=== PATIENT | female | born 1960 ===

== ENCOUNTER 2020-06-11 10:30 | Inpatient (IN) | payer OTHER ==
[~2020-06-11] VITALS: Ht 157.5 cm; Wt 72.1 kg
[2020-06-11] MEDS ORDERED: SYNTHROID75 MCG PO (11:38)
[2020-06-11] MEDS ORDERED: MAXFE PO (11:39)
== END 2020-06-15 11:26 | disposition home or self-care (01) | DRG 737 ==
LOC: OB/GYN 06-12 10:30 → SURG-SUITE 06-13 07:20 → O/R 06-13 07:20 → OB/GYN 06-13 10:30 → SURG-SUITE 06-13 14:53
PROVIDERS: ADMIT Specialist; ATTEND Specialist
PROC: 0UT20ZZ Resection of Bilateral Ovaries, Open Approach (ICD-10-PCS; 2020-06-13)
PROC: 0UT70ZZ Resection of Bilateral Fallopian Tubes, Open Approach (ICD-10-PCS; 2020-06-13)
PROC: 07BC0ZX Excision of Pelvis Lymphatic, Open Approach, Diagnostic (ICD-10-PCS; 2020-06-13)
PROC: 0WBF0ZX Excision of Abdominal Wall, Open Approach, Diagnostic (ICD-10-PCS; 2020-06-13)
PROC: 0WBH0ZX Excision of Retroperitoneum, Open Approach, Diagnostic (ICD-10-PCS; 2020-06-13)
PROC: 0UT90ZZ Resection of Uterus, Open Approach (ICD-10-PCS; principal; 2020-06-13 07:00)
DX: C56.2 Malignant neoplasm of left ovary (principal); C78.6 Secondary malignant neoplasm of retroperitoneum and peritoneum; N80.0 Endometriosis of uterus; N87.9 Dysplasia of cervix uteri, unspecified

== ENCOUNTER 2021-12-04 12:00 | Outpatient (CLI) | payer OTHER ==
[~2021-12-04 12:00] MED LIST: MAXFE PO; SYNTHROID75 MCG PO
== END 2021-12-04 12:02 | disposition home or self-care (01) ==
LOC: SONOGRAMA 12:00
PROVIDERS: ATTEND Pathology Anatomic Pathology & Clinical Pathology
DX: R22.1 Localized swelling, mass and lump, neck (principal)

== ENCOUNTER 2024-10-26 08:21 | Outpatient (CLI) | payer OTHER | END 2024-10-26 08:26 | disposition home or self-care (01) | LOC: SONOGRAMA 08:21 | PROVIDERS: ATTEND Pathology Anatomic Pathology & Clinical Pathology | DX: D34 Benign neoplasm of thyroid gland (principal); E07.89 Other specified disorders of thyroid; E03.9 Hypothyroidism, unspecified ==